=== PATIENT | female | born 1940 | race Caucasian/White ===

== ENCOUNTER 2018-03-03 21:37 | Emergency (ER) | payer OTHER ==
[~2018-03-03] VITALS: Ht 160 cm; Wt 104.3 kg
--- NOTE | ~2018-03-03 | EKG ---
[place], [place] ELECTROCARDIOGRAM REPORT NAME: ANAYELI CORREIA UNIT #: [id number] ROOM: DOCTOR: EPIPHANY DRAFT REPORT BIRTHDATE: [birth year] [facility] Test Date: 2018-03-03 Test Time: 22:52:16 Pat Name: ANAYELI CORREIA Department: Room: Gender: F Cna Pct: Tamera Deras : 1940 Requested By: NESSA MILLER PA-C Order Number: [id number] Reading MD: Alirio Merino MD Measurements Intervals [place] Rate: 57 P: 32 MT: 182 QRS: -23 QRSD: 98 T: -6 QT: 448 QTc: 437 Interpretive Statements Sinus rhythm Probable left ventricular hypertrophy Electronically Signed On 03-06-2018 13:58:57 PDT by Alirio Merino MD CM:EKGRPT:ELECTROCARDIOGRAM REPORT [id number] NESSA MILLER PA-C EPIPHANY DRAFT REPORT NESSA MILLER PA-C
[2018-03-03 22:51] LABS: BASO # 0.1 10*3/uL (0.0-0.1); BASO % 0.6 % (0.0-1.0); EOS # 0.2 10*3/uL (0.0-0.4); EOS % 2.7 % (1.0-4.0); HEMATOCRIT 38.9 % (37.0-47.0); HEMOGLOBIN 12.6 g/dl (12.0-16.0); LYMPH # 1.7 10*3/uL (1.3-4.4); LYMPH % 21.1 % (27.0-41.0); MEAN CELL VOLUME 94.4 fl (81.0-99.0); MEAN CORPUSCULAR HGB 30.6 pg (27.0-31.0); MEAN CORPUSCULAR HGB CONC 32.4 g/dl (33.0-37.0); MONO # 0.4 10*3/uL (0.1-1.0); MONO % 5.6 % (3.0-9.0); NEUT # 5.5 10*3/uL (2.3-7.9); NEUT % 69.7 % (47.0-73.0); PLATELET COUNT AUTOMATED 238 10*3/uL (130-400); RED BLOOD COUNT 4.12 10*6/uL (4.10-5.10); RED CELL DISTRI WIDTH 12.6 % (0-14.5); WHITE BLOOD COUNT 7.9 10*3/uL (4.8-10.8)
[2018-03-03 22:56] LABS: INTERNATIONAL NORM RATIO 0.9 (2.0-3.5)
[2018-03-03 23:04] LABS: ALBUMIN 2.9 gm/dl (3.1-4.5); ALKALINE PHOSPHATASE 86 U/L (45-117); BUN 13 mg/dl (7-24); CHLORIDE 109 mmol/L (98-107); CREATININE 0.75 mg/dL (0.55-1.02); LIPASE 151 U/L (73-393); SGOT/AST 15 IU/L (3-35); SGPT/ALT 24 U/L (12-78); SODIUM 142 mmol/L (136-145)
[2018-03-03 23:06] LABS: TROPONIN I 0.019 ng/ml (<0.045)
== END 2018-03-03 23:21 | disposition home or self-care (01) ==
LOC: ED 21:37
PROVIDERS: Physician Assistant
DX: S20.219A Contusion of unspecified front wall of thorax, initial encounter (principal); Z88.1 Allergy status to other antibiotic agents; V43.62XA Car passenger injured in collision with other type car in traffic accident, initial encounter; Y93.I9 Activity, other involving external motion; Y92.488 Other paved roadways as the place of occurrence of the external cause; Y99.8 Other external cause status